=== PATIENT | female | born 1975 | race Caucasian/White ===

== ENCOUNTER 2018-05-04 09:47 | Day surgery (SDC) | payer BC ==
[~2018-05-04] VITALS: Ht 165.1 cm; Wt 83.9 kg
[~2018-05-04 09:47] MED LIST: EXCEDRIN MIGRA1 EAC3 PO; OXYCODONE-ACET1 EACH PO; ROBAXIN500 MG PO; VENTOLIN HFA18 GM IH
[2018-05-04] MEDS ORDERED: LYRICA75 MG PO (10:22)
[2018-05-04] MEDS ORDERED: DUEXIS 800-26.1 EACH PO (10:23)
[2018-05-04 10:24] VITALS: BP 130/73
[2018-05-04 14:45] VITALS: BP 128/77
[2018-05-04 15:35] VITALS: BP 111/62
[2018-05-04 16:31] VITALS: BP 110/67
== END 2018-05-04 16:50 | disposition home or self-care (01) ==
LOC: SDC 09:47
PROC: 01NB0ZZ Release Lumbar Nerve, Open Approach (ICD-10-PCS; principal; 2018-05-04)
DX: M51.16 Intervertebral disc disorders with radiculopathy, lumbar region (principal); M62.81 Muscle weakness (generalized); M47.816 Spondylosis without myelopathy or radiculopathy, lumbar region; I47.1 Supraventricular tachycardia; J45.909 Unspecified asthma, uncomplicated; Z79.82 Long term (current) use of aspirin; F17.200 Nicotine dependence, unspecified, uncomplicated
CPT/HCPCS: 72020; 76000; J0690; J1100; J1170; J2250; J2405; J2710; J2930; J3010; J7643; S0020

== ENCOUNTER 2018-05-12 14:21 | Emergency (ER) | payer BC ==
[~2018-05-12] VITALS: Ht 165.1 cm; Wt 84.0 kg
[~2018-05-12 14:21] MED LIST changes: +DUEXIS 800-26.1 EACH PO; +LYRICA75 MG PO
[2018-05-12 15:06] LABS: HEMATOCRIT 41.5 % (36.0-46.0); HEMOGLOBIN 14.6 G/DL (11.9-15.5); MCH 32.4 PG (29.0-34.0); MCHC 35.2 G/DL (30.0-36.0); PLATELET COUNT 379 K/uL (156-360); RBC DIS.WIDTH-CV 12.4 % (11.8-14.6); RBC DIS.WIDTH-SD 41.7 % (39-53); RED BLOOD COUNT 4.51 M/uL (3.80-5.20); WHITE BLOOD COUNT 11.7 K/uL (4.1-10.2)
[2018-05-12 15:17] LABS: ALBUMIN 4.1 g/dL (3.2-4.8)
[2018-05-12 15:18] LABS: CHLORIDE 105 mEq/L (99-109); POTASSIUM 3.7 mEq/L (3.7-5.4); SODIUM 137 mEq/L (136-147)
[2018-05-12 15:18] LABS: APPEARANCE SL.HAZY ((CLEAR)); BILIRUBIN NEGATIVE; BLOOD NEGATIVE; COLOR YELLOW ((YELLOW)); GLUCOSE (STRIP) NEGATIVE; KETONES NEGATIVE; LEUKOCYTES NEGATIVE; NITRITE NEGATIVE; PROTEIN (STRIP) NEGATIVE; UROBILINOGEN 0.2 MG/DL (0.2-1.0)
[2018-05-12 15:20] LABS: GLUCOSE 113 mg/dL (70-99); TOTAL PROTEIN 7.1 g/dL (6.4-8.3)
[2018-05-12 15:22] LABS: TOTAL BILIRUBIN 0.4 mg/dL (0.0-1.0)
[2018-05-12 15:23] LABS: ALKALINE PHOSPHATASE 67 IU/L (3-129)
[2018-05-12 15:24] LABS: CREATININE 0.8 mg/dL (0.6-1.3); GFR ESTIMATE (CALCULATED) > 59 mL/min/
[2018-05-12 15:25] LABS: AST (GOT) 16 IU/L (2-34); UREA NITROGEN (BUN) 12 mg/dL (9-23)
[2018-05-12 15:27] LABS: BACTERIA NONE SEEN /HPF; EPITHELIAL CELLS 1+ /HPF; MUCUS TRACE /LPF; RED BLOOD CELLS NONE SEEN /HPF (0-5); UCUL ADDED? NO; WHITE BLOOD CELLS 0-5 /HPF (0-5)
[2018-05-12 15:27] LABS: ALT (GPT) 20 IU/L (3-49)
[2018-05-12 15:33] LABS: QUANTITATIVE HCG < 4.0 MIU/ML
[2018-05-12] MEDS ORDERED: ZOFRAN ODT4 MG PO (18:02)
[2018-05-12] MEDS ORDERED: TORADOL10 MG PO (18:02)
[2018-05-12 18:20] VITALS: BP 113/67
== END 2018-05-12 19:25 | disposition home or self-care (01) ==
LOC: EME 14:21
DX: R10.31 Right lower quadrant pain (principal); R11.0 Nausea; Z87.891 Personal history of nicotine dependence
CPT/HCPCS: 74176; 80053; 81003; 84702; 85027; 99281; 99284; J1885; J2270; J2405; J7030